=== PATIENT | female | born 1960 | race Caucasian/White ===

== ENCOUNTER 2016-12-18 15:56 | Inpatient (IN) | payer MEDICAID ==
[~2016-12-18] VITALS: Ht 175.3 cm; Wt 103.0 kg
[~2016-12-18 15:56] MED LIST: ASPI-1159 PO; CARV25TA47 PO; FOLI-68 PO; LISI10TA5 PO; SPIR25TA4 PO
[2016-12-18 17:21] LABS: BASOPHILS % 1.2 % (0.0-2.0); EOSINOPHILS % 1.4 % (0.0-5.0); HEMATOCRIT. 35.8 % (36.0-48.0); HEMOGLOBIN. 12.1 g/dL (12.0-16.0); LYMPHOCYTES % 27.9 % (20.0-50.0); MEAN CORPUSCULAR HEMOGLOBIN 30.5 pg (28.0-32.0); MEAN PLATELET VOLUME 8.4 fl (7.4-10.4); MONOCYTES % 6.8 % (2.0-8.0); NEUTROPHILS % 62.7 % (40.0-76.0); PLATELET 202 x1000/uL (130-400); RED BLOOD CELL COUNT 3.97 mill/uL (4.2-5.4); RED CELL DISTRIBUTION WIDTH 14.2 % (11.6-14.6)
[2016-12-18 17:26] LABS: CHLORIDE 104 mEq/L (98-107)
[2016-12-18 17:28] LABS: INR 1.6; PARTIAL THROMBOPLASTIN TIME 33.3 sec (23.4-31.0)
[2016-12-18 17:31] LABS: CARBON DIOXIDE 31 mEq/L (21-32)
[2016-12-18 17:36] LABS: TROPONIN I 0.03 ng/mL (0.00-0.04)
[2016-12-18 21:00] VITALS: BP 145/79
[2016-12-18 21:12] VITALS: BP 138/77
[2016-12-18 22:00] VITALS: BP 136/79
[2016-12-18] MEDS ORDERED: FURO40TA5 PO (22:49)
[2016-12-18] MEDS ORDERED: INSU100I24 SQ (22:49)
[2016-12-18] MEDS ORDERED: RIVA10TA PO (22:49)
[2016-12-18] MEDS ORDERED: SACU1TAB PO (22:49)
[2016-12-18] MEDS ORDERED: ATOR10TA69 PO (22:49)
[2016-12-18] MEDS ORDERED: AMIO100T4 PO (22:49)
[2016-12-19] VITALS (14 sets, daily range): BP systolic 98–144; BP diastolic 47–74
[2016-12-19] MEDS ORDERED: AMIODARONE PO (02:22)
[2016-12-19] MEDS ORDERED: ENTRESTO PO (02:22)
[2016-12-19] MEDS ORDERED: ATORVASTATIN PO (02:22)
[2016-12-19] MEDS ORDERED: XARELTO PO (02:22)
[2016-12-19] MEDS ORDERED: DEXTROSE 50% WATER 50ML SYRINGE IV PRN (05:45)
[2016-12-19] MEDS: ACETAMINOPHEN 325MG TABLET PO PRN ×3 (06:05→22:33)
[2016-12-19] MEDS: BLOOD SUGAR DIAGNOSTIC STRIP TEST SCH ×4 (06:08→21:00)
[2016-12-19 06:48] LABS: HEMATOCRIT. 35.4 % (36.0-48.0); HEMOGLOBIN. 11.9 g/dL (12.0-16.0); MEAN CORPUSCULAR HEMOGLOBIN 30.4 pg (28.0-32.0); MEAN CORPUSCULAR VOLUME 90.3 fL (81.0-99.0); PLATELET 203 x1000/uL (130-400); RED BLOOD CELL COUNT 3.92 mill/uL (4.2-5.4); RED CELL DISTRIBUTION WIDTH 14.4 % (11.6-14.6)
[2016-12-19 07:55] LABS: CREATINE KINASE MB FRACTION 0.8 ng/mL (0.5-3.6); TROPONIN I 0.03 ng/mL (0.00-0.04)
[2016-12-19] MEDS: MULTIVITAMINS,THER W-MINERALS TABLET PO SCH (08:19)
[2016-12-19] MEDS: AMIODARONE HCL 200 MG TABLET PO SCH ×2 (08:19→18:29)
[2016-12-19] MEDS: CARVEDILOL 25MG TABLET PO SCH ×2 (08:19→21:00)
[2016-12-19] MEDS: FUROSEMIDE 40MG TABLET PO SCH (08:19)
[2016-12-19] MEDS: SPIRONOLACTONE 25MG TABLET PO SCH (08:20)
[2016-12-19] MEDS: INSULIN LISPRO 100 UNITS/ML SUBCUT SCH ×4 (08:21→21:00)
[2016-12-19] MEDS ORDERED: MULTIVITAMIN PO SCH (09:00)
[2016-12-19 16:17] LABS: CREATINE KINASE MB FRACTION 0.8 ng/mL (0.5-3.6); TROPONIN I 0.02 ng/mL (0.00-0.04)
[2016-12-19 16:45] LABS: PLATELET ESTIMATE NORMAL
[2016-12-19] MEDS ORDERED: RIVAROXABAN 10 MG TABLET PO SCH (17:20)
[2016-12-19] MEDS ORDERED: ATORVASTATIN CALCIUM 20MG TABLET PO SCH (21:00)
[2016-12-20] VITALS (10 sets, daily range): BP systolic 110–138; BP diastolic 45–80
[2016-12-20 06:52] LABS: BASOPHILS % 0.7 % (0.0-2.0); HEMATOCRIT. 36.5 % (36.0-48.0); HEMOGLOBIN. 12.3 g/dL (12.0-16.0); LYMPHOCYTES % 36.7 % (20.0-50.0); MEAN CORPUSCULAR HEMOGLOBIN 30.6 pg (28.0-32.0); MEAN PLATELET VOLUME 8.9 fl (7.4-10.4); MONOCYTES % 7.6 % (2.0-8.0); PLATELET 200 x1000/uL (130-400); RED BLOOD CELL COUNT 4.01 mill/uL (4.2-5.4); RED CELL DISTRIBUTION WIDTH 14.4 % (11.6-14.6)
[2016-12-20] MEDS: BLOOD SUGAR DIAGNOSTIC STRIP TEST SCH ×2 (07:22→11:39)
[2016-12-20 07:36] LABS: TROPONIN I 0.03 ng/mL (0.00-0.04)
[2016-12-20] MEDS: INSULIN LISPRO 100 UNITS/ML SUBCUT SCH ×2 (08:24→12:44)
[2016-12-20] MEDS: FUROSEMIDE 40MG TABLET PO SCH (08:25)
[2016-12-20] MEDS: MULTIVITAMINS,THER W-MINERALS TABLET PO SCH (08:25)
[2016-12-20] MEDS: SPIRONOLACTONE 25MG TABLET PO SCH (08:25)
[2016-12-20] MEDS: CARVEDILOL 25MG TABLET PO SCH (08:26)
[2016-12-20 08:36] LABS: *AMPHETAMINES SCREEN URINE NEGATIVE (NEGATIVE); *BARBITURATES SCREEN URINE NEGATIVE (NEGATIVE); *BENZODIAZEPINES SCREEN URINE NEGATIVE (NEGATIVE); *COCAINE SCREEN URINE NEGATIVE (NEGATIVE); CANNABINOID URINE SCREEN NEGATIVE (NEGATIVE); METHADONE URINE SCREEN NEGATIVE (NEGATIVE); OPIATES URINE SCREEN NEGATIVE (NEGATIVE); PHENCYCLIDINE URINE SCREEN NEGATIVE (NEGATIVE)
[2016-12-20] MEDS: AMIODARONE HCL 200 MG TABLET PO SCH (10:24)
[2016-12-20] MEDS ORDERED: RIVAROXABAN 20 MG TABLET PO SCH (16:31)
== END 2016-12-20 15:06 | disposition home or self-care (01) | DRG 203 ==
LOC: ER 16:19 → ENRESERV 17:30 → 3WST 17:55 → EDBEDREQTM 17:58 → EDBEDREQ 17:58
PROVIDERS: ADMIT Hospitalist; ATTEND Hospitalist
DX: M94.0 Chondrocostal junction syndrome [Tietze] (principal); I11.0 Hypertensive heart disease with heart failure; I42.0 Dilated cardiomyopathy; I50.9 Heart failure, unspecified; D68.69 Other thrombophilia; R07.89 Other chest pain; I25.2 Old myocardial infarction; E11.9 Type 2 diabetes mellitus without complications; E78.5 Hyperlipidemia, unspecified; I48.0 Paroxysmal atrial fibrillation; Z79.01 Long term (current) use of anticoagulants; Z79.82 Long term (current) use of aspirin; Z95.810 Presence of automatic (implantable) cardiac defibrillator; Z79.899 Other long term (current) drug therapy
CPT/HCPCS: 36415; 71010; 80048; 80053; 80061; 80305; 82550; 82553; 82962; 83690; 83735; 83880; 84443; 84484; 85007; 85025; 85027; 85610; 85730; 93005; 93306; 99291; J1815

== ENCOUNTER 2020-01-21 06:24 | Inpatient (IN) | payer OTHER, MEDICAID ==
[~2020-01-21] VITALS: Ht 167.6 cm; Wt 85.7 kg
[~2020-01-21 06:24] MED LIST changes: +AMIODARONE PO; -ASPI-1159 PO; +ATORVASTATIN PO; +ENTRESTO PO; +FURO40TA5 PO; +INSU100I24 SQ; -LISI10TA5 PO; -SPIR25TA4 PO; +SPIR25TA6 PO; +XARELTO PO
[2020-01-21] MEDS ORDERED: ASPIRIN 81MG TABLET PO ONE (06:45)
[2020-01-21] MEDS ORDERED: MORPHINE SULFATE 4 MG/ML CPJ (NOT FOR IM USE) IV SCH (06:45)
[2020-01-21] MEDS ORDERED: PROCHLORPERAZINE 10MG/2ML VIAL IM ONE (06:45)
[2020-01-21] MEDS ORDERED: FAMOTIDINE 20MG/2ML VIAL IV ONE (06:45)
[2020-01-21] MEDS ORDERED: SODIUM CHLORIDE 0.9% 1,000 ML IV ONE (07:45)
[2020-01-21] MEDS ORDERED: MORPHINE SULFATE 2 MG/ML CPJ (NOT FOR IM USE) IV ONE (07:45)
[2020-01-21 07:56] LABS: BASOPHILS % 0.5 % (0.0-2.0); EOSINOPHILS % 0.6 % (0.0-5.0); HEMATOCRIT. 33.8 % (36.0-48.0); HEMOGLOBIN. 10.8 g/dL (12.0-16.0); LYMPHOCYTES % 12.6 % (20.0-50.0); MEAN CORPUSCULAR HEMOGLOBIN 28.7 pg (28.0-32.0); MEAN CORPUSCULAR VOLUME 89.7 fL (81.0-99.0); MEAN PLATELET VOLUME 8.1 fl (7.4-10.4); MONOCYTES % 7.9 % (2.0-8.0); NEUTROPHILS % 78.4 % (40.0-76.0); PLATELET 264 x1000/uL (130-400); RED BLOOD CELL COUNT 3.77 mill/uL (4.2-5.4)
[2020-01-21 08:05] LABS: CHLORIDE 109 mEq/L (98-107)
[2020-01-21 08:08] LABS: ETHANOL BLOOD < 10 mg/dL
[2020-01-21] MEDS ORDERED: FUROSEMIDE 40MG/4ML VIAL IVP ONE (08:45)
[2020-01-21] MEDS ORDERED: APIXABAN 5 MG TABLET PO ONE (09:00)
[2020-01-21 11:02] LABS: *AMPHETAMINES SCREEN URINE NEGATIVE (NEGATIVE)
[2020-01-21 11:03] LABS: *BARBITURATES SCREEN URINE NEGATIVE (NEGATIVE); *BENZODIAZEPINES SCREEN URINE NEGATIVE (NEGATIVE); *COCAINE SCREEN URINE NEGATIVE (NEGATIVE); METHADONE URINE SCREEN NEGATIVE (NEGATIVE)
[2020-01-21 11:05] LABS: CANNABINOID URINE SCREEN NEGATIVE (NEGATIVE); OPIATES URINE SCREEN PRESUMTIVE POSITIVE (NEGATIVE); PHENCYCLIDINE URINE SCREEN NEGATIVE (NEGATIVE)
[2020-01-21] MEDS ORDERED: DEXTROSE 50% WATER 50ML SYRINGE IV PRN (15:45)
[2020-01-21] MEDS ORDERED: HYDROCODONE/ACETAMINOPHEN 5/325MG TABLET PO PRN (16:15)
[2020-01-21] MEDS: ONDANSETRON HCL 4MG/2ML INJ IV PRN (16:41)
[2020-01-21] MEDS: BLOOD SUGAR DIAGNOSTIC STRIP TEST SCH ×2 (17:09→22:51)
[2020-01-21] MEDS: INSULIN LISPRO 100 UNITS/ML SUBCUT SCH ×2 (19:20→22:49)
[2020-01-21] MEDS: CARVEDILOL 3.125 MG TABLET PO SCH (21:00)
[2020-01-21 21:53] VITALS: BP 130/47
[2020-01-21 21:54] VITALS: BP 130/47
[2020-01-21 22:00] VITALS: BP 95/52
[2020-01-21] MEDS: ENOXAPARIN 100MG/ML SYR SUBCUT SCH (22:48)
[2020-01-22] VITALS (12 sets, daily range): BP systolic 84–118; BP diastolic 42–74
[2020-01-22] MEDS ORDERED: ACETAMINOPHEN 325MG TABLET PO PRN (00:15)
[2020-01-22 06:42] LABS: HEMATOCRIT. 38.1 % (36.0-48.0); HEMOGLOBIN. 12.2 g/dL (12.0-16.0); MEAN CORPUSCULAR HEMOGLOBIN 28.9 pg (28.0-32.0); MEAN PLATELET VOLUME 8.4 fl (7.4-10.4); PLATELET 249 x1000/uL (130-400); RED BLOOD CELL COUNT 4.24 mill/uL (4.2-5.4); RED CELL DISTRIBUTION WIDTH 17.9 % (11.6-14.6)
[2020-01-22] MEDS: INSULIN LISPRO 100 UNITS/ML SUBCUT SCH ×4 (08:05→20:56)
[2020-01-22] MEDS: BLOOD SUGAR DIAGNOSTIC STRIP TEST SCH ×4 (08:05→20:40)
[2020-01-22] MEDS: ENOXAPARIN 100MG/ML SYR SUBCUT SCH (08:06)
[2020-01-22] MEDS: ONDANSETRON HCL 4MG/2ML INJ IV PRN ×2 (08:11→17:53)
[2020-01-22] MEDS: FUROSEMIDE 40MG/4ML VIAL IVP SCH (08:15)
[2020-01-22] MEDS: CARVEDILOL 3.125 MG TABLET PO SCH (08:19)
[2020-01-22] MEDS: LOSARTAN POTASSIUM 25 MG TABLET PO SCH (08:20)
[2020-01-22 10:18] LABS: CLARITY URINE CLOUDY (CLEAR); COLOR URINE YELLOW (YELLOW); KETONES URINE NEGATIVE (NEGATIVE); LEUKOCYTE ESTERASE URINE TRACE (NEGATIVE); NITRITE URINE NEGATIVE (NEGATIVE); OCCULT BLOOD URINE 1+ (NEGATIVE); PH URINE 5.5 (4.5-8.0); PROTEIN URINE NEGATIVE (NEGATIVE); SPECIFIC GRAVITY URINE 1.017 (1.005-1.030); UROBILINOGEN URINE 0.2 E.U./dL (0.2-1.0)
[2020-01-22] MEDS: PIPERACILLIN/TAZOBACTAM 3.375 G in DEXT 5% WATER 100 ML IV SCH ×3 (10:19→22:22)
[2020-01-22] MEDS ORDERED: PIPERACILLIN/TAZOBACTAM 3.375 G/VIAL IV SCH (12:00)
[2020-01-22 14:30] LABS: PLATELET ESTIMATE NORMAL
[2020-01-22] MEDS: INSULIN GLARGINE UD 100 UNITS/ML SYR SUBCUT SCH (22:19)
[2020-01-23] VITALS (11 sets, daily range): BP systolic 86–123; BP diastolic 47–78
[2020-01-23] MEDS: PIPERACILLIN/TAZOBACTAM 3.375 G in DEXT 5% WATER 100 ML IV SCH ×4 (03:03→21:49)
[2020-01-23 07:24] LABS: HEMATOCRIT. 32.9 % (36.0-48.0); HEMOGLOBIN. 10.7 g/dL (12.0-16.0); MEAN CORPUSCULAR HEMOGLOBIN 28.4 pg (28.0-32.0); MEAN CORPUSCULAR VOLUME 87.1 fL (81.0-99.0); MEAN PLATELET VOLUME 8.5 fl (7.4-10.4); PLATELET 280 x1000/uL (130-400); RED BLOOD CELL COUNT 3.78 mill/uL (4.2-5.4); RED CELL DISTRIBUTION WIDTH 16.9 % (11.6-14.6)
[2020-01-23] MEDS: BLOOD SUGAR DIAGNOSTIC STRIP TEST SCH ×4 (07:30→21:00)
[2020-01-23] MEDS: FUROSEMIDE 40MG/4ML VIAL IVP SCH (08:37)
[2020-01-23] MEDS: ONDANSETRON HCL 4MG/2ML INJ IV PRN (08:37)
[2020-01-23] MEDS: LOSARTAN POTASSIUM 25 MG TABLET PO SCH (08:38)
[2020-01-23] MEDS ORDERED: ENOXAPARIN 40MG/0.4ML SYR SUBCUT SCH (09:00)
[2020-01-23] MEDS: INSULIN GLARGINE UD 100 UNITS/ML SYR SUBCUT SCH ×2 (10:57→22:47)
[2020-01-23] MEDS: INSULIN LISPRO 100 UNITS/ML SUBCUT SCH ×4 (10:57→22:46)
[2020-01-23] MEDS ORDERED: DIPHENHYDRAMINE 50MG/ML VIAL IV PRN (13:45)
[2020-01-23] MEDS ORDERED: LORAZEPAM 2MG/ML CPJ IV PRN (13:45)
[2020-01-23] MEDS ORDERED: BISACODYL 10MG SUPP PR PRN (13:45)
[2020-01-23] MEDS ORDERED: IPRATROPIUM/ALBUTEROL 0.5-3(2.5)MG/3ML NEB HHN PRN (13:45)
[2020-01-23] MEDS: DILTIAZEM HCL 30MG TABLET PO SCH ×2 (14:00→22:00)
[2020-01-23 14:16] LABS: PLATELET ESTIMATE NORMAL
[2020-01-23 14:48] LABS: BG BASE EXCESS 3.4 mmol/L (-2.0-2.0); BG CARBOXYHEMOGLOBIN 0.3 % (0.5-1.5); BG DEOXYHEMOGLOBIN 8.7 % (0.0-5.0); BG FRACTION INSPIRED OXYGEN 21; BG HCO3 ACT 28.2 mmol/L (22.0-26.0); BG METHEMOGLOBIN 0.3 % (0.0-1.5); BG OXYGEN SATURATION 91.2 % (92.0-98.5); BG OXYHEMOGLOBIN 90.7 % (94.0-97.0); BG PCO2 43.5 mmHg (35.0-45.0); BG PH 7.429 (7.350-7.450); BG PO2 60.4 mmHg (75.0-100.0); BG SAMPLE SITE RIGHT BRACHIAL; BG TOTAL HEMOGLOBIN 11.9 g/dL (12.0-18.0); BG VENT MODE ROOM AIR
[2020-01-23 18:04] LABS: INR 1.1; PROTHROMBIN TIME 11.7 sec (9.6-11.0)
[2020-01-24] VITALS (7 sets, daily range): BP systolic 91–111; BP diastolic 54–65
[2020-01-24] MEDS: PIPERACILLIN/TAZOBACTAM 3.375 G in DEXT 5% WATER 100 ML IV SCH ×2 (02:50→13:36)
[2020-01-24] MEDS: DILTIAZEM HCL 30MG TABLET PO SCH ×3 (06:00→22:00)
[2020-01-24 07:05] LABS: BASOPHILS % 0.3 % (0.0-2.0); EOSINOPHILS % 0.5 % (0.0-5.0); HEMATOCRIT. 31.1 % (36.0-48.0); HEMOGLOBIN. 10.2 g/dL (12.0-16.0); LYMPHOCYTES % 9.1 % (20.0-50.0); MEAN CORPUSCULAR HEMOGLOBIN 28.5 pg (28.0-32.0); MEAN CORPUSCULAR VOLUME 86.7 fL (81.0-99.0); MEAN PLATELET VOLUME 8.3 fl (7.4-10.4); MONOCYTES % 8.8 % (2.0-8.0); NEUTROPHILS % 81.3 % (40.0-76.0); PLATELET 286 x1000/uL (130-400); RED BLOOD CELL COUNT 3.59 mill/uL (4.2-5.4); RED CELL DISTRIBUTION WIDTH 16.7 % (11.6-14.6)
[2020-01-24 07:15] LABS: CHLORIDE 100 mEq/L (98-107)
[2020-01-24] MEDS: BLOOD SUGAR DIAGNOSTIC STRIP TEST SCH ×4 (07:30→21:00)
[2020-01-24 07:39] LABS: HEPATITIS B SURFACE ANTIGEN NEGATIVE
[2020-01-24] MEDS: INSULIN LISPRO 100 UNITS/ML SUBCUT SCH ×4 (08:00→21:00)
[2020-01-24 08:09] LABS: HEPATITIS A AB IGM NEGATIVE (NEGATIVE)
[2020-01-24] MEDS: FUROSEMIDE 40MG/4ML VIAL IVP SCH (08:11)
[2020-01-24] MEDS: INSULIN GLARGINE UD 100 UNITS/ML SYR SUBCUT SCH ×2 (10:00→22:00)
[2020-01-24] MEDS ORDERED: SODIUM BICARBONATE 4% (2.4MEQ) 5ML VIAL IV ONE (10:19)
[2020-01-24] MEDS ORDERED: LIDOCAINE HCL 1% 20ML VIAL (Pyxis) INJ ONE (10:19)
[2020-01-24] MEDS: ENOXAPARIN 100MG/ML SYR SUBCUT SCH (17:25)
[2020-01-24] MEDS: PIPERACILLIN/TAZOBACTAM 2.25 G in DEXTROSE 5% WATER 50 ML IV SCH ×2 (18:53→22:23)
[2020-01-25] VITALS (7 sets, daily range): BP systolic 85–152; BP diastolic 46–81
[2020-01-25] MEDS: PIPERACILLIN/TAZOBACTAM 2.25 G in DEXTROSE 5% WATER 50 ML IV SCH ×3 (05:04→17:18)
[2020-01-25] MEDS: ENOXAPARIN 100MG/ML SYR SUBCUT SCH ×2 (06:00→17:19)
[2020-01-25] MEDS: BLOOD SUGAR DIAGNOSTIC STRIP TEST SCH ×3 (08:14→17:20)
[2020-01-25 09:32] LABS: BASOPHILS % 0.5 % (0.0-2.0); EOSINOPHILS % 0.2 % (0.0-5.0); HEMATOCRIT. 32.5 % (36.0-48.0); HEMOGLOBIN. 10.6 g/dL (12.0-16.0); LYMPHOCYTES % 8.9 % (20.0-50.0); MEAN CORPUSCULAR HEMOGLOBIN 28.6 pg (28.0-32.0); MEAN CORPUSCULAR VOLUME 87.7 fL (81.0-99.0); MONOCYTES % 9.7 % (2.0-8.0); NEUTROPHILS % 80.7 % (40.0-76.0); PLATELET 322 x1000/uL (130-400); RED BLOOD CELL COUNT 3.71 mill/uL (4.2-5.4); RED CELL DISTRIBUTION WIDTH 17.2 % (11.6-14.6)
[2020-01-25] MEDS: INSULIN LISPRO 100 UNITS/ML SUBCUT SCH ×3 (09:37→17:50)
[2020-01-25] MEDS: PIPERACILLIN/TAZOBACTAM 3.375 G in DEXT 5% WATER 100 ML IV SCH (09:50)
[2020-01-25] MEDS: INSULIN GLARGINE UD 100 UNITS/ML SYR SUBCUT SCH (10:48)
[2020-01-25] MEDS ORDERED: ALBU90AE INH (13:28)
[2020-01-25] MEDS ORDERED: DILT30TA38 MT (13:28)
[2020-01-25] MEDS ORDERED: LEVO500T2 PO (13:28)
[2020-01-25] MEDS ORDERED: APIX5TAB MT (13:28)
[2020-01-25] MEDS ORDERED: AMOX1TAB15 MT (13:28)
[2020-01-25] MEDS: DILTIAZEM HCL 30MG TABLET PO SCH (14:00)
== END 2020-01-25 21:00 | disposition home or self-care (01) | DRG 280 ==
LOC: ER 06:24 → 5EST 09:25 → EDBEDREQ 09:29 → EDBEDREQTM 09:29 → EDBEDREQSVC 09:29 → ENRESERV 19:43 → 5EST 01-23 20:01 → 6WST 01-24 20:31
PROVIDERS: ADMIT Internal Medicine; ATTEND Internal Medicine
PROC: 0W9G3ZZ Drainage of Peritoneal Cavity, Percutaneous Approach (ICD-10-PCS; principal; 2020-01-21)
DX: I21.4 Non-ST elevation (NSTEMI) myocardial infarction (principal); I50.23 Acute on chronic systolic (congestive) heart failure; E43 Unspecified severe protein-calorie malnutrition; J18.9 Pneumonia, unspecified organism; K65.2 Spontaneous bacterial peritonitis; I42.9 Cardiomyopathy, unspecified; C56.9 Malignant neoplasm of unspecified ovary; E87.1 Hypo-osmolality and hyponatremia; N17.9 Acute kidney failure, unspecified; K57.32 Diverticulitis of large intestine without perforation or abscess without bleeding; R18.8 Other ascites; N20.2 Calculus of kidney with calculus of ureter; N39.0 Urinary tract infection, site not specified; I82.412 Acute embolism and thrombosis of left femoral vein; I27.20 Pulmonary hypertension, unspecified; Z86.74 Personal history of sudden cardiac arrest; I11.0 Hypertensive heart disease with heart failure; D64.9 Anemia, unspecified; E11.9 Type 2 diabetes mellitus without complications; E78.5 Hyperlipidemia, unspecified; E87.8 Other disorders of electrolyte and fluid balance, not elsewhere classified; I48.0 Paroxysmal atrial fibrillation; I25.10 Atherosclerotic heart disease of native coronary artery without angina pectoris; E66.9 Obesity, unspecified; K80.20 Calculus of gallbladder without cholecystitis without obstruction; K44.9 Diaphragmatic hernia without obstruction or gangrene; K52.9 Noninfective gastroenteritis and colitis, unspecified; K74.60 Unspecified cirrhosis of liver; Z79.01 Long term (current) use of anticoagulants; Z79.899 Other long term (current) drug therapy; Z85.43 Personal history of malignant neoplasm of ovary; Z82.49 Family history of ischemic heart disease and other diseases of the circulatory system; Z95.810 Presence of automatic (implantable) cardiac defibrillator; Z87.891 Personal history of nicotine dependence; I25.2 Old myocardial infarction; Z68.30 Body mass index [BMI] 30.0-30.9, adult; Z85.41 Personal history of malignant neoplasm of cervix uteri; Z85.89 Personal history of malignant neoplasm of other organs and systems; N20.0 Calculus of kidney
CPT/HCPCS: 36415; 36600; 49083; 71045; 71250; 74176; 76770; 78580; 80048; 80053; 80061; 80305; 80320; 81003; 82040; 82140; 82375; 82378; 82805; 82962; 83036; 83605; 83615; 83735; 83880; 84443; 84478; 84484; 85025; 86304; 86705; 86709; 86803; 86850; 86900; 87340; 88108; 88312; 93005; 93306; 93970; 96374; 99291; J0780; J1650; J1815; J1940; J2270; J2405; J2543; J3490; J7030; J7040; J7060; G0480

== ENCOUNTER 2020-12-01 16:40 | Inpatient (IN) | payer OTHER, MEDICAID ==
[~2020-12-01] VITALS: Ht 165.1 cm; Wt 91.6 kg
[~2020-12-01 16:40] MED LIST changes: +ALBU90AE INH; -AMIODARONE PO; +AMOX1TAB15 MT; +APIX5TAB MT; -CARV25TA47 PO; +DILT30TA38 MT; -ENTRESTO PO; +LEVO500T2 PO; -XARELTO PO
[2020-12-01] MEDS ORDERED: DIPHENHYDRAMINE 25MG CAPSULE PO ONE (17:30)
[2020-12-01 19:37] LABS: BASOPHILS % 0.9 % (0.0-2.0); HEMATOCRIT. 35.8 % (36.0-48.0); LYMPHOCYTES % 23.1 % (20.0-50.0); PLATELET 185 x1000/uL (130-400); RED BLOOD CELL COUNT 3.94 mill/uL (4.2-5.4); RED CELL DISTRIBUTION WIDTH 21.8 % (11.6-14.6)
[2020-12-01 19:38] LABS: CHLORIDE 106 mEq/L (98-107)
[2020-12-01] MEDS ORDERED: FUROSEMIDE 40MG/4ML VIAL IVP ONE (21:45)
[2020-12-01] MEDS ORDERED: FUROSEMIDE 20MG/2ML VIAL IVP ONE (23:00)
[2020-12-01] MEDS ORDERED: DIPHENHYDRAMINE 50MG/ML VIAL IV ONE (23:00)
[2020-12-02 02:05] VITALS: BP 111/54
[2020-12-02] MEDS ORDERED: ONDANSETRON HCL 4MG/2ML INJ IV PRN ×2 (03:45→07:30)
[2020-12-02] MEDS ORDERED: ACETAMINOPHEN 325MG TABLET PO PRN (03:45)
[2020-12-02 04:00] VITALS: BP 109/53
[2020-12-02] MEDS ORDERED: AMIT10TA6 PO (05:33)
[2020-12-02] MEDS ORDERED: METO-396 PO (05:34)
[2020-12-02] MEDS ORDERED: DEXTROSE 50% WATER 50ML SYRINGE IV PRN (06:45)
[2020-12-02] MEDS: BLOOD SUGAR DIAGNOSTIC STRIP TEST SCH ×4 (07:20→22:26)
[2020-12-02] MEDS ORDERED: ACETAMINOPHEN 650MG SUPP PR PRN (07:30)
[2020-12-02] MEDS ORDERED: SODIUM CHLORIDE 0.45% 1,000 ML IV SCH (07:30)
[2020-12-02] MEDS ORDERED: DEXT 5%/0.45% NACL 1000ML 1,000 ML IV SCH (07:30)
[2020-12-02] MEDS ORDERED: MORPHINE SULFATE 2 MG/ML CPJ (NOT FOR IM USE) IV PRN (07:30)
[2020-12-02] MEDS ORDERED: ENOXAPARIN 30MG/0.3ML SYR SUBCUT SCH (09:00)
[2020-12-02] MEDS ORDERED: METOPROLOL TARTRATE 25MG TABLET PO SCH (09:00)
[2020-12-02] MEDS ORDERED: FUROSEMIDE 40MG TABLET PO SCH (09:00)
[2020-12-02] MEDS ORDERED: PIPERACILLIN/TAZOBACTAM 3.375 G in DEXTROSE 5% WATER 50 ML IV SCH (09:00)
[2020-12-02] MEDS: APIXABAN 5 MG TABLET PO SCH ×2 (11:09→17:00)
[2020-12-02] MEDS: FAMOTIDINE 20MG TABLET PO SCH (11:09)
[2020-12-02] MEDS: INSULIN LISPRO 100 UNITS/ML SUBCUT SCH ×4 (11:11→22:25)
[2020-12-02 12:00] VITALS: BP 143/56
[2020-12-02 12:05] VITALS: BP 143/56
[2020-12-02 13:08] LABS: BASOPHILS % 1.1 % (0.0-2.0); EOSINOPHILS % 3.9 % (0.0-5.0); HEMATOCRIT. 31.5 % (36.0-48.0); HEMOGLOBIN. 10.1 g/dL (12.0-16.0); LYMPHOCYTES % 23.8 % (20.0-50.0); MEAN CORPUSCULAR HEMOGLOBIN 28.3 pg (28.0-32.0); MEAN CORPUSCULAR VOLUME 88.5 fL (81.0-99.0); MEAN PLATELET VOLUME 9.9 fl (7.4-10.4); MONOCYTES % 7.2 % (2.0-8.0); PLATELET 182 x1000/uL (130-400); RED BLOOD CELL COUNT 3.57 mill/uL (4.2-5.4); RED CELL DISTRIBUTION WIDTH 21.9 % (11.6-14.6)
[2020-12-02] MEDS ORDERED: LIDOCAINE HCL/PF 1% 2ML VIAL ONE (13:48)
[2020-12-02 13:59] LABS: CHLORIDE 105 mEq/L (98-107)
[2020-12-02 14:35] LABS: CREATINE KINASE MB FRACTION 1.8 ng/mL (0.5-3.6)
[2020-12-02 16:00] VITALS: BP 92/65
[2020-12-02 16:25] LABS: BG BASE EXCESS -2.1 mmol/L (-2.0-2.0); BG CARBOXYHEMOGLOBIN 0.3 % (0.5-1.5); BG FRACTION INSPIRED OXYGEN 21; BG HCO3 ACT 20.9 mmol/L (22.0-26.0); BG METHEMOGLOBIN 0.3 % (0.0-1.5); BG OXYHEMOGLOBIN 95.4 % (94.0-97.0); BG PCO2 30.1 mmHg (35.0-45.0); BG PH 7.459 (7.350-7.450); BG PO2 82.1 mmHg (75.0-100.0); BG SAMPLE SITE RIGHT RADIAL; BG VENT MODE ROOM AIR
[2020-12-02] MEDS ORDERED: NALOXONE HCL 0.4MG/ML VIAL IV PRN (17:45)
[2020-12-02] MEDS: FUROSEMIDE 40MG/4ML VIAL IVP SCH (18:45)
[2020-12-02 20:00] VITALS: BP 110/63
[2020-12-02] MEDS ORDERED: CARVEDILOL 6.25 MG TABLET PO SCH (21:00)
[2020-12-02] MEDS: AMITRIPTYLINE 10MG TABLET PO SCH (22:25)
[2020-12-02] MEDS: METOPROLOL TARTRATE 25MG TABLET PO SCH (22:29)
[2020-12-02] MEDS: DIPHENHYDRAMINE 25MG CAPSULE PO PRN (22:30)
[2020-12-03] VITALS: BP 109/85
[2020-12-03 04:00] VITALS: BP 115/56
[2020-12-03 05:59] LABS: BASOPHILS % 0.7 % (0.0-2.0); EOSINOPHILS % 2.7 % (0.0-5.0); HEMATOCRIT. 31.9 % (36.0-48.0); HEMOGLOBIN. 10.1 g/dL (12.0-16.0); LYMPHOCYTES % 18.9 % (20.0-50.0); MEAN CORPUSCULAR HEMOGLOBIN 28.3 pg (28.0-32.0); MEAN CORPUSCULAR VOLUME 89.4 fL (81.0-99.0); MONOCYTES % 9.7 % (2.0-8.0); PLATELET 171 x1000/uL (130-400); RED BLOOD CELL COUNT 3.57 mill/uL (4.2-5.4); RED CELL DISTRIBUTION WIDTH 21.7 % (11.6-14.6)
[2020-12-03 06:01] LABS: CHLORIDE 105 mEq/L (98-107)
[2020-12-03 06:08] LABS: LDL CHOLESTEROL 35 mg/dL (5-100)
[2020-12-03 06:10] LABS: HDL CHOLESTEROL 23 mg/dL (40-59)
[2020-12-03] MEDS: FUROSEMIDE 40MG/4ML VIAL IVP SCH ×2 (06:55→17:53)
[2020-12-03] MEDS: BLOOD SUGAR DIAGNOSTIC STRIP TEST SCH ×4 (07:20→22:01)
[2020-12-03 08:00] VITALS: BP 99/57
[2020-12-03] MEDS: METOPROLOL TARTRATE 25MG TABLET PO SCH ×3 (09:00→21:00)
[2020-12-03] MEDS: INSULIN LISPRO 100 UNITS/ML SUBCUT SCH ×4 (09:06→22:01)
[2020-12-03] MEDS: APIXABAN 5 MG TABLET PO SCH ×2 (09:14→21:58)
[2020-12-03] MEDS: FAMOTIDINE 20MG TABLET PO SCH (09:14)
[2020-12-03 11:30] VITALS: BP 99/57
[2020-12-03 16:00] VITALS: BP 102/60
[2020-12-03 18:59] LABS: CLARITY URINE CLEAR (CLEAR); COLOR URINE YELLOW (YELLOW); KETONES URINE NEGATIVE (NEGATIVE); LEUKOCYTE ESTERASE URINE 2+ (NEGATIVE); NITRITE URINE NEGATIVE (NEGATIVE); OCCULT BLOOD URINE NEGATIVE (NEGATIVE); PROTEIN URINE 1+ (NEGATIVE); SPECIFIC GRAVITY URINE 1.016 (1.005-1.030); UROBILINOGEN URINE 0.2 E.U./dL (0.2-1.0)
[2020-12-03 20:00] VITALS: BP 108/74
[2020-12-03] MEDS ORDERED: METOPROLOL TARTRATE 25MG TABLET PO SCH (21:00)
[2020-12-03] MEDS: AMITRIPTYLINE 10MG TABLET PO SCH (21:58)
[2020-12-03] MEDS: DIPHENHYDRAMINE 25MG CAPSULE PO PRN (23:46)
[2020-12-04] VITALS: BP 106/56
[2020-12-04 04:00] VITALS: BP 97/59
[2020-12-04] MEDS: DIPHENHYDRAMINE 25MG CAPSULE PO PRN ×3 (06:01→22:07)
[2020-12-04] MEDS: FUROSEMIDE 40MG/4ML VIAL IVP SCH ×2 (06:13→18:25)
[2020-12-04 06:53] LABS: BASOPHILS % 0.8 % (0.0-2.0); EOSINOPHILS % 5.4 % (0.0-5.0); HEMOGLOBIN. 10.2 g/dL (12.0-16.0); LYMPHOCYTES % 21.4 % (20.0-50.0); MEAN CORPUSCULAR VOLUME 90.7 fL (81.0-99.0); MEAN PLATELET VOLUME 9.8 fl (7.4-10.4); MONOCYTES % 9.7 % (2.0-8.0); NEUTROPHILS % 62.7 % (40.0-76.0); PLATELET 162 x1000/uL (130-400); RED BLOOD CELL COUNT 3.63 mill/uL (4.2-5.4); RED CELL DISTRIBUTION WIDTH 21.7 % (11.6-14.6)
[2020-12-04 07:45] LABS: CHLORIDE 105 mEq/L (98-107)
[2020-12-04] MEDS: BLOOD SUGAR DIAGNOSTIC STRIP TEST SCH ×4 (07:54→21:17)
[2020-12-04] MEDS: INSULIN LISPRO 100 UNITS/ML SUBCUT SCH ×4 (08:49→21:13)
[2020-12-04] MEDS: METOPROLOL TARTRATE 25MG TABLET PO SCH ×2 (08:51→21:16)
[2020-12-04] MEDS: FAMOTIDINE 20MG TABLET PO SCH (08:51)
[2020-12-04] MEDS: APIXABAN 5 MG TABLET PO SCH ×2 (08:51→21:17)
[2020-12-04] MEDS ORDERED: MAGNESIUM 2 G PREMIX 50 ML IV SCH (10:00)
[2020-12-04] MEDS: MAGNESIUM OXIDE 400MG TABLET PO SCH (13:30)
[2020-12-04] MEDS ORDERED: ATOR-2 PO (15:16)
[2020-12-04 16:00] VITALS: BP 122/63
[2020-12-04 20:00] VITALS: BP 118/81
[2020-12-04] MEDS: AMITRIPTYLINE 10MG TABLET PO SCH (21:16)
[2020-12-05] VITALS: BP 90/55
[2020-12-05 04:00] VITALS: BP 106/40
[2020-12-05] MEDS: FUROSEMIDE 40MG/4ML VIAL IVP SCH (06:37)
[2020-12-05] MEDS: BLOOD SUGAR DIAGNOSTIC STRIP TEST SCH ×3 (06:37→18:15)
[2020-12-05 07:36] LABS: CHLORIDE 106 mEq/L (98-107)
[2020-12-05 07:46] LABS: PHOSPHORUS 2.9 mg/dL (2.5-4.9)
[2020-12-05 08:00] VITALS: BP 111/68
[2020-12-05] MEDS: MAGNESIUM OXIDE 400MG TABLET PO SCH (08:32)
[2020-12-05] MEDS: FAMOTIDINE 20MG TABLET PO SCH (08:32)
[2020-12-05] MEDS: APIXABAN 5 MG TABLET PO SCH (08:32)
[2020-12-05] MEDS: INSULIN LISPRO 100 UNITS/ML SUBCUT SCH ×3 (08:34→17:50)
[2020-12-05 08:44] LABS: BASOPHILS % 0.6 % (0.0-2.0); HEMATOCRIT. 33.4 % (36.0-48.0); HEMOGLOBIN. 10.1 g/dL (12.0-16.0); LYMPHOCYTES % 22.7 % (20.0-50.0); MEAN CORPUSCULAR HEMOGLOBIN 27.6 pg (28.0-32.0); MEAN CORPUSCULAR VOLUME 91.5 fL (81.0-99.0); MEAN PLATELET VOLUME 9.8 fl (7.4-10.4); MONOCYTES % 10.3 % (2.0-8.0); NEUTROPHILS % 61.4 % (40.0-76.0); PLATELET 174 x1000/uL (130-400); RED BLOOD CELL COUNT 3.65 mill/uL (4.2-5.4); RED CELL DISTRIBUTION WIDTH 22.4 % (11.6-14.6)
[2020-12-05] MEDS: METOPROLOL TARTRATE 25MG TABLET PO SCH (09:00)
[2020-12-05 12:00] VITALS: BP 97/75
[2020-12-05] MEDS ORDERED: ATOR-2 PO (14:14)
[2020-12-05] MEDS ORDERED: FURO-151 MT (14:14)
[2020-12-05] MEDS ORDERED: APIX5TAB MT (14:14)
[2020-12-05] MEDS ORDERED: DILT30TA38 MT (14:14)
[2020-12-05] MEDS ORDERED: ALBU90AE INH (14:14)
[2020-12-05] MEDS ORDERED: FUROSEMIDE 40MG TABLET PO SCH (17:15)
[2020-12-05 17:32] VITALS: BP 121/77
== END 2020-12-05 19:20 | disposition home or self-care (01) | DRG 292 ==
LOC: ER 16:40 → 6WST 23:23 → EDBEDREQTM 23:30 → EDBEDREQ 23:30 → ENRESERV 12-02 00:24
PROVIDERS: ADMIT Internal Medicine; ATTEND Internal Medicine
PROC: 4B02XTZ Measurement of Cardiac Defibrillator, External Approach (ICD-10-PCS; principal; 2020-12-04)
DX: I13.0 Hypertensive heart and chronic kidney disease with heart failure and stage 1 through stage 4 chronic kidney disease, or unspecified chronic kidney disease (principal); N17.9 Acute kidney failure, unspecified; E44.0 Moderate protein-calorie malnutrition; I50.20 Unspecified systolic (congestive) heart failure; I42.8 Other cardiomyopathies; D64.9 Anemia, unspecified; E11.22 Type 2 diabetes mellitus with diabetic chronic kidney disease; E78.5 Hyperlipidemia, unspecified; I25.2 Old myocardial infarction; J44.9 Chronic obstructive pulmonary disease, unspecified; N28.1 Cyst of kidney, acquired; Z20.822 Contact with and (suspected) exposure to COVID-19; R16.0 Hepatomegaly, not elsewhere classified; R00.1 Bradycardia, unspecified; E80.6 Other disorders of bilirubin metabolism; C53.9 Malignant neoplasm of cervix uteri, unspecified; I25.10 Atherosclerotic heart disease of native coronary artery without angina pectoris; E83.42 Hypomagnesemia; N18.30 Chronic kidney disease, stage 3 unspecified; Z79.01 Long term (current) use of anticoagulants; Z82.49 Family history of ischemic heart disease and other diseases of the circulatory system; Z85.41 Personal history of malignant neoplasm of cervix uteri; Z86.718 Personal history of other venous thrombosis and embolism; Z95.5 Presence of coronary angioplasty implant and graft; Z95.810 Presence of automatic (implantable) cardiac defibrillator; Z99.2 Dependence on renal dialysis; Z88.8 Allergy status to other drugs, medicaments and biological substances; Z79.899 Other long term (current) drug therapy; Z79.4 Long term (current) use of insulin; Z92.21 Personal history of antineoplastic chemotherapy; Z68.33 Body mass index [BMI] 33.0-33.9, adult
CPT/HCPCS: 36415; 36600; 71045; 76700; 78582; 80048; 80053; 80061; 81003; 82375; 82550; 82553; 82805; 82962; 83036; 83735; 83880; 84100; 84484; 85025; 85379; 93005; 93306; 93970; 99285; A9558; J1200; J1815; J1940; J2543; J3475; J3490; J7060; Q0163

== ENCOUNTER 2020-12-10 19:50 | Emergency (ER) | payer OTHER, MEDICAID ==
[~2020-12-10] VITALS: Ht 177.8 cm; Wt 82.0 kg
[~2020-12-10 19:50] MED LIST changes: +AMIT10TA6 PO; -AMOX1TAB15 MT; +ATOR-2 PO; -ATORVASTATIN PO; +FURO-151 MT; -FURO40TA5 PO; -LEVO500T2 PO; +METO-396 PO
[2020-12-10] MEDS ORDERED: MAGNESIUM/ALUMINUM HYDROXIDE/SIMETHICONE 30ML UDC PO STA (20:31)
[2020-12-10] MEDS ORDERED: DICYCLOMINE 10 MG/5 ML ORAL SYR PO STA (20:31)
[2020-12-10 21:41] LABS: BASOPHILS % 1.1 % (0.0-2.0); EOSINOPHILS % 2.8 % (0.0-5.0); HEMATOCRIT. 33.6 % (36.0-48.0); HEMOGLOBIN. 10.6 g/dL (12.0-16.0); LYMPHOCYTES % 26.2 % (20.0-50.0); MEAN CORPUSCULAR HEMOGLOBIN 27.7 pg (28.0-32.0); MEAN CORPUSCULAR VOLUME 87.5 fL (81.0-99.0); MEAN PLATELET VOLUME 9.3 fl (7.4-10.4); MONOCYTES % 7.6 % (2.0-8.0); NEUTROPHILS % 62.3 % (40.0-76.0); PLATELET 201 x1000/uL (130-400); RED BLOOD CELL COUNT 3.84 mill/uL (4.2-5.4); RED CELL DISTRIBUTION WIDTH 22.1 % (11.6-14.6)
[2020-12-10 21:47] LABS: CHLORIDE 106 mEq/L (98-107)
[2020-12-10 21:59] LABS: PLATELET ESTIMATE NORMAL
[2020-12-11 01:00] VITALS: BP 142/67
== END 2020-12-11 01:00 | disposition home or self-care (01) ==
LOC: ER 19:50
DX: R10.33 Periumbilical pain (principal); I11.0 Hypertensive heart disease with heart failure; I50.9 Heart failure, unspecified; I25.2 Old myocardial infarction; Z85.6 Personal history of leukemia; Z79.899 Other long term (current) drug therapy
CPT/HCPCS: 36415; 74176; 80053; 82962; 85025; 99284